=== PATIENT | male | born 1980 | race Caucasian/White ===

== ENCOUNTER 2024-04-17 12:52 | Emergency (ER) | payer BC ==
[~2024-04-17] VITALS: Ht 182.9 cm; Wt 77.1 kg
[2024-04-17 14:15] LABS: BASOPHILS % (AUTO) 0.2 % (0.0-2.0); EOSINOPHILS # (AUTO) 0.4 K/uL (0.0-0.7); EOSINOPHILS % (AUTO) 4.9 % (0.0-6.0); HEMATOCRIT 44 % (39-51); HEMOGLOBIN 15.7 g/dL (13.5-17.5); LYMPHOCYTES # (AUTO) 1.6 K/uL (0.8-4.8); LYMPHOCYTES % (AUTO) 22.2 % (20.0-44.0); MEAN CORPUSCULAR HEMOGLOBIN 29 PG (26.0-33.0); MEAN CORPUSCULAR HGB CONC 36 g/dl (31.0-36.0); MEAN CORPUSCULAR VOLUME 81 fL (80-96); MONOCYTES # (AUTO) 0.5 K/uL (0.1-1.30); MONOCYTES % (AUTO) 6.5 % (2.0-12.0); NEUTROPHILS # (AUTO) 4.9 K/uL (1.8-8.9); NEUTROPHILS % (AUTO) 66.2 % (43.0-81.0); PLATELET COUNT (AUTO) 266 K/uL (150-450); RED CELL DISTRIBUTION WIDTH 13.3 % (11.5-15.0); WHITE BLOOD COUNT (AUTO) 7.3 K/uL (4.3-11.0)
[2024-04-17 14:26] LABS: CALCIUM, SERUM 9.5 mg/dL (8.5-10.1)
[2024-04-17 14:36] LABS: ALBUMIN 4.2 g/dL (3.4-5.0); BILIRUBIN,DIRECT 0.1 mg/dL (0.0-0.2); BILIRUBIN,TOTAL 0.4 mg/dL (0.2-1.0); TOTAL PROTEIN, SERUM 7.7 g/dL (6.4-8.2)
[2024-04-17 15:05] VITALS: BP 128/84; TEMP 98.6; O2SAT 98
== END 2024-04-17 15:05 | disposition home or self-care (01) ==
LOC: ER 13:10
DX: R10.9 Unspecified abdominal pain (principal); K92.1 Melena
CPT/HCPCS: 36415; 80048-TC; 80076-TC; 83690-TC; 85025-TC